=== PATIENT | female | born 1965 | race Caucasian/White ===

== ENCOUNTER 2018-05-12 07:51 | Day surgery (SDC) | payer BC ==
[~2018-05-12] VITALS: Ht 157.5 cm; Wt 90.7 kg
[2018-05-12] MEDS ORDERED: CEFAZOLIN SOD 1 GM/ ISO 50 ML PREMIX IV ONE (09:45)
[2018-05-12] MEDS ORDERED: HYDROcodone/ACETAMIN 5-325 MG TAB (NORCO/ VICODIN) PO PRN (10:45)
[2018-05-12] MEDS ORDERED: OXYCODONE/ACETAMINOPHEN 5-325 TABLET PO PRN (10:45)
[2018-05-12] MEDS ORDERED: ONDANSETRON HCL 4 MG/2 ML VIAL IVP PRN (10:45)
[2018-05-12] MEDS ORDERED: fentaNYL CITRATE 250 MCG/5 ML AMP ONE (11:00)
[2018-05-12] MEDS ORDERED: ONDANSETRON HCL 4 MG/2 ML VIAL ONE (11:00)
[2018-05-12] MEDS ORDERED: PROPOFOL 200MG/ 20ML VIAL (DIPRIVAN) IV ONE (11:00)
[2018-05-12] MEDS ORDERED: ROCURONIUM BROMIDE 10 MG/ML (ZEMURON) ONE (11:00)
[2018-05-12] MEDS ORDERED: MORPHINE 4 MG/ML INJ. SYRINGE IVP PRN ×3 (11:00)
[2018-05-12] MEDS ORDERED: MIDAZOLAM HCL 5 MG/ML VIAL (VERSED) IV ONE (11:00)
[2018-05-12] MEDS ORDERED: METOCLOPRAMIDE HCL 10 MG/2 ML VIAL IVP PRN (11:00)
[2018-05-12] MEDS ORDERED: NS 1000 ML IV.SOLN IV ONE (11:00)
[2018-05-12] MEDS ORDERED: NS IRRIG SOLN 1000 ML IR ONE (11:00)
[2018-05-12] MEDS ORDERED: LR 1,000 ML IV.SOLN IV ONE (11:00)
[2018-05-12 11:34] VITALS: BP_SYST 121
== END 2018-05-12 12:30 | disposition home or self-care (01) ==
LOC: SDS 07:51 → SMU 07:52 → SDS 12:30
PROVIDERS: ATTEND Specialist
DX: N92.0 Excessive and frequent menstruation with regular cycle (principal); R93.8 Abnormal findings on diagnostic imaging of other specified body structures; D25.9 Leiomyoma of uterus, unspecified; E66.01 Morbid (severe) obesity due to excess calories; Z68.36 Body mass index [BMI] 36.0-36.9, adult; Z01.810 Encounter for preprocedural cardiovascular examination
CPT/HCPCS: 58558; 88305; 93005; J0690; J2250; J2405; J2704; J3010; J7030; J7120

== ENCOUNTER 2019-12-17 20:02 | Emergency (ER) | payer BC ==
[~2019-12-17] VITALS: Ht 154.9 cm; Wt 81.6 kg
[2019-12-17 20:38] VITALS: BP_SYST 153
[2019-12-17 22:32] VITALS: BP_SYST 148
== END 2019-12-17 22:32 | disposition home or self-care (01) ==
LOC: SED 20:02
DX: S86.911A Strain of unspecified muscle(s) and tendon(s) at lower leg level, right leg, initial encounter (principal); X58.XXXA Exposure to other specified factors, initial encounter; Y93.89 Activity, other specified; Y92.89 Other specified places as the place of occurrence of the external cause; Y99.8 Other external cause status
CPT/HCPCS: 93971; 99284

== ENCOUNTER 2022-01-18 05:49 | Emergency (ER) | payer BC ==
[~2022-01-18] VITALS: Ht 154.9 cm; Wt 88.5 kg
[2022-01-18 06:00] VITALS: BP_SYST 169
--- NOTE | 2022-01-18 06:00 | NUR ---
Patient triaged and placed in waiting room. VSS and patient appears in no acute distress at this time. Accompanied by fam member, awaiting available bed, and MD notified of need for MSE.
--- NOTE | 2022-01-18 07:14 | NUR ---
BROUGHT BACK TO BED #7 AND REPORT GIVEN TO JOSIAH
--- NOTE | 2022-01-18 07:19 | NUR ---
Pt coming from home ambualtory with steady gait. Pt is A&Ox4. Skin intact. Pt c/o abdominal pain for the past 4 days intermittently non-radiating. Rates pain 4/10. Pt states she also has been having rectal bleeding in the last 24hrs. No chest pain and no sob. Denies n/v. Connected pt to monitor and VSS. Allergic to Sulfa and tetracycline. Pt states she has no known medical conditions. Bed in lowest position.
--- NOTE | 2022-01-18 07:24 | NUR ---
mechanical design technician at bedside.
--- NOTE | 2022-01-18 07:30 | NUR ---
Urine collected and sent to lab.
[2022-01-18 07:34] LABS: BASOPHILS # (AUTO) 0.1 K/uL (0.0-0.2); BASOPHILS % (AUTO) 0.6 % (0.0-2.0); EOSINOPHILS # (AUTO) 0.1 K/uL (0.0-0.4); EOSINOPHILS % (AUTO) 0.8 % (0.0-4.0); HEMATOCRIT 39.8 % (36-48); HEMOGLOBIN 13.3 g/dL (12.0-16.0); LYMPHOCYTES % (AUTO) 15.5 % (20.5-51.5); MEAN CORPUSCULAR HEMOGLOBIN 29 pg (27-31); MEAN CORPUSCULAR HGB CONC 33 % (32-36); MEAN CORPUSCULAR VOLUME 87 fL (79.0-98.0); MONOCYTES # (AUTO) 1.2 K/uL (0.0-1.0); MONOCYTES % (AUTO) 9.1 % (1.7-9.3); NEUTROPHILS # (AUTO) 9.6 K/uL (1.8-7.7); PLATELET COUNT (AUTO) 192 K/uL (130-430); RED BLOOD CELL COUNT(AUTO) 4.57 MIL/uL (4.2-6.2); RED CELL DISTRIBUTION WIDTH 14.4 % (9.0-15.0)
[2022-01-18 07:36] LABS: BILIRUBIN,URINE NEGATIVE (NEGATIVE); CLARITY/URINE CLEAR (CLEAR); COLOR,URINE YELLOW (YELLOW); GLUCOSE,URINE NEGATIVE (NEGATIVE); KETONES,URINE NEGATIVE (NEGATIVE); LEUKOCYTE ESTERASE ,URINE TRACE (NEGATIVE); NITRITE, URINE NEGATIVE (NEGATIVE); PROTEIN URINE NEGATIVE (NEGATIVE); UROBILINOGEN,URINE 0.2 (0.2-1.0)
[2022-01-18 07:45] LABS: BLOOD, URINE TRACE (NEGATIVE)
[2022-01-18 07:54] LABS: BACTERIA,URINE FEW /HPF (None Seen)
[2022-01-18 07:54] LABS: ALBUMIN 3.1 g/dL (3.4-4.8); C-REACTIVE PROTEIN QUANT 17.3 mg/dL (0-0.5); CALCIUM 8.2 mg/dL (8.4-11.0); CREATININE 0.8 mg/dL (0.55-1.30); POTASSIUM 3.4 mmol/L (3.5-5.1); TOTAL BILIRUBIN 0.6 mg/dL (0.0-1.0)
--- NOTE | 2022-01-18 08:07 | NUR ---
ER at bedside examining patient.
[2022-01-18] MEDS ORDERED: IBUP-1969 PO (08:13)
[2022-01-18] MEDS ORDERED: AMOX-423 PO (08:13)
--- NOTE | 2022-01-18 09:00 | NUR ---
Patient given written and verbal discharge instructions and verbalizes understanding. ER MD discussed with patient the results and treatment provided. Patient in stable condition. ID arm band removed. Patient educated on pain management and to follow up with PMD. Pain Scale 0/10. Opportunity for questions provided and answered. Medication side effect fact sheet provided.
[2022-01-18 09:24] VITALS: BP_SYST 128
== END 2022-01-18 09:24 | disposition home or self-care (01) ==
LOC: SED 05:49
DX: K57.92 Diverticulitis of intestine, part unspecified, without perforation or abscess without bleeding (principal)
CPT/HCPCS: 36415; 76376; 80053; 81000; 81025; 83605; 84703; 85025; 86140; 99284

== ENCOUNTER 2024-02-02 21:32 | Emergency (ER) | payer BC ==
[~2024-02-02] VITALS: Ht 154.9 cm; Wt 86.2 kg
[~2024-02-02 21:32] MED LIST: AMOX-423 PO; IBUP-1969 PO
[2024-02-02 21:35] VITALS: BP_SYST 201; PULSE 88; RESP 17; TEMP 98.6; O2SAT 97
[2024-02-02 22:09] LABS: BASOPHILS # (AUTO) 0.1 K/uL (0.0-0.2); BASOPHILS % (AUTO) 1.3 % (0.0-2.0); EOSINOPHILS # (AUTO) 0.1 K/uL (0.0-0.4); EOSINOPHILS % (AUTO) 1.5 % (0.0-4.0); HEMATOCRIT 42.5 % (36-48); HEMOGLOBIN 14.2 g/dL (12.0-16.0); LYMPHOCYTES # (AUTO) 2.2 K/uL (1.0-5.5); LYMPHOCYTES % (AUTO) 26.4 % (20.5-51.5); MEAN CORPUSCULAR HEMOGLOBIN 30 pg (27-31); MEAN CORPUSCULAR HGB CONC 33 % (32-36); MEAN CORPUSCULAR VOLUME 90 fL (79.0-98.0); MONOCYTES % (AUTO) 11.9 % (1.7-9.3); NEUTROPHILS % (AUTO) 58.9 % (40.0-70.0); PLATELET COUNT (AUTO) 223 K/uL (130-430); RED BLOOD CELL COUNT(AUTO) 4.71 MIL/uL (4.2-6.2); RED CELL DISTRIBUTION WIDTH 13.8 % (9.0-15.0); WHITE BLOOD COUNT (AUTO) 8.5 K/uL (4.8-10.8)
[2024-02-02 22:20] LABS: BILIRUBIN,URINE NEGATIVE (NEGATIVE); BLOOD, URINE 1+ (NEGATIVE); CLARITY/URINE CLEAR (CLEAR); COLOR,URINE YELLOW (YELLOW); GLUCOSE,URINE NEGATIVE (NEGATIVE); KETONES,URINE NEGATIVE (NEGATIVE); LEUKOCYTE ESTERASE ,URINE 1+ (NEGATIVE); NITRITE, URINE NEGATIVE (NEGATIVE); PROTEIN URINE NEGATIVE (NEGATIVE); UROBILINOGEN,URINE 0.2 (0.2-1.0)
[2024-02-02 22:20] LABS: ALBUMIN 3.7 g/dL (3.4-4.8); BILIRUBIN,DIRECT 0.1 mg/dL (0.0-0.3); CALCIUM 9.3 mg/dL (8.4-11.0); CREATININE 0.88 mg/dL (0.55-1.30); POTASSIUM 3.8 mmol/L (3.5-5.1); TOTAL BILIRUBIN 0.4 mg/dL (0.0-1.0); TOTAL PROTEIN, SERUM 7.8 g/dL (6.4-8.3)
[2024-02-02 22:51] LABS: BACTERIA,URINE FEW /HPF (None Seen)
[2024-02-02 22:52] LABS: MUCUS,URINE 2+ /LPF (None Seen)
[2024-02-03] MEDS: NACL 0.9% 1,000 ML IV ONE
[2024-02-03] MEDS: KETOROLAC TROMETHAMINE 30 MG VIAL IVP ONE (00:06)
[2024-02-03] MEDS ORDERED: IBUP-1969 PO (01:36)
[2024-02-03] MEDS ORDERED: CEPH-548 PO (01:36)
[2024-02-03 01:44] VITALS: BP_SYST 153; PULSE 69; RESP 20; TEMP 98.6; O2SAT 97
== END 2024-02-03 01:44 | disposition home or self-care (01) ==
LOC: SED 21:32
DX: N39.0 Urinary tract infection, site not specified (principal); K57.90 Diverticulosis of intestine, part unspecified, without perforation or abscess without bleeding; R10.32 Left lower quadrant pain; Z88.2 Allergy status to sulfonamides; Z88.8 Allergy status to other drugs, medicaments and biological substances; Z79.899 Other long term (current) drug therapy; Z79.2 Long term (current) use of antibiotics
CPT/HCPCS: 99285; 74176; 80076; 80048; 81001; 83690; 85025; 87086; 36415; 96374; 96361; J1885; J7030; 81000; 81015